=== PATIENT | male | born 1990 | race Caucasian/White ===

== ENCOUNTER 2019-09-08 04:03 | Inpatient (IN) ==
[2019-09-08] MEDS ORDERED: MORPHINE IV ONE ×2 (04:28→05:18)
[2019-09-08] MEDS ORDERED: ZOFRAN IV ONE (04:28)
[2019-09-08] MEDS ORDERED: NS 1,000 ML IV ONE (04:28)
[2019-09-08 04:57] LABS: AGAP 14; ALBUMIN 5.1 g/dL (3.5-5.0); ALKALINE PHOSPHATASE 64 U/L (32-122); BUN 12 mg/dL (8-22); CALCIUM 9.6 mg/dL (8.8-10.2); CHLORIDE 100 mmol/L (98-107); COSMO 275; CREATININE 0.6 mg/dL (0.7-1.2); ESTIMATED GFR > 60; GLUCOSE 149 mg/dL (70-104); GOT 39 U/L (10-34); GPT 25 U/L (10-44); LIPASE 17 U/L (13-60); POTASSIUM 5.1 mmol/L (3.5-5.1); SODIUM 136 mmol/L (136-145); TCO2 22 mmol/L (25-35); TOTAL PROTEIN 7.8 g/dL (6.3-8.3)
[2019-09-08 05:03] LABS: BASO# 0.03 X1000 (0.0-0.2); BASO% 0.1 % (0.0-0.8); EOS# 0.02 X1000 (0.0-0.7); EOS% 0.1 % (0.0-10.0); HEMATOCRIT 46.5 % (42.0-52.0); HEMOGLOBIN 15.7 g/dL (14.0-18.0); IMM GRAN# 0.05 X1000 (0.0-0.04); IMM GRAN% 0.2 % (0.0-0.5); LYMPH% 6.7 % (20.5-51.1); MCH 32.2 PG (27-31); MCHC 33.8 g/dL (33-37); MCV 95.5 FL (81-99); MONO# 0.45 X1000 (0.11-0.59); MONO% 2.2 % (1.7-9.3); MPV 10.7 FL (7.4-10.4); NEUT# 18.88 X1000 (1.4-6.5); NEUT% 90.7 % (42.2-75.2); PLT 304 X1000 (130-400); RBC 4.87 XMIL (4.7-6.1); RDW 12.8 % (11.5-14.5); WBC 20.83 X1000 (4.8-10.8)
[2019-09-08 05:04] LABS: BANDS 3 % (0-1); LYMPHS 4 % (21-51); MONO 4 % (1-9); SEGS 89 % (42-75); STOMATOCYTES 1+
[2019-09-08 05:37] LABS: URINE SOURCE CLEAN CATCH
[2019-09-08 05:39] LABS: BILIRUBIN URINE NEGATIVE (NEGATIVE); BLOOD URINE NEGATIVE (NEGATIVE); COLOR YELLOW; GLUCOSE URINE TRACE mg/dL (NEGATIVE); KETONE URINE NEGATIVE (NEGATIVE); LEUKOCYTES URINE NEGATIVE (NEGATIVE); NITRITE URINE NEGATIVE (NEGATIVE); PH URINE 8.5; PROTEIN URINE TRACE mg/dL (NEGATIVE); SP GRAVITY URINE 1.019; TURBIDITY URINE TURBID (CLEAR); UROBILINOGEN URINE NORMAL (NORMAL)
[2019-09-08 05:40] LABS: UR EPITHELIAL CELLS <10 /HPF (<10); URINE BACTERIA NEGATIVE /HPF; URINE RBC <10 /HPF (<10); URINE WBC <10 /HPF (<10)
[2019-09-08] MEDS ORDERED: ZOSYN 3.375 GM in NS 50 ML IV ONE (06:19)
--- NOTE | 2019-09-08 06:32 | PROVIDER DOCUMENTATION ---
HPI-General Adult - General Chief Complaint: Abdominal Pain Stated Complaint: ABD PAIN/V/D Time Seen by Provider: 09/08/19 04:13 Source: patient Allergies/Adverse Reactions: Patient Allergies Allergy/AdvReac Type Severity Reaction Status Date / Time No Known Allergies Allergy Verified 09/08/19 04:11 Home Medications: Home Medication List Medication Instructions Recorded Confirmed Last Taken Type NK [No Home Medications] 09/08/19 09/08/19 Unknown History - History of Present Illness -Gen Adult Nature of Presenting Problems: Sudden onset severe RUQ pain last night with vomting. No previous such episodes. No fever, no diarrhea. Review of Systems - Adult - REVIEW OF SYSTEMS - ADULT Constitutional: reports: chills, fatique Eyes: reports: no symptoms reported Ears, Nose, Mouth & Throat: reports: no symptoms reported Cardiovascular: reports: no symptoms reported Respiratory: reports: no symptoms reported Gastrointestinal: reports: see HPI Genitourinary: reports: no symptoms reported Musculoskeletal: reports: no symptoms reported Integumentary: reports: no symptoms reported Neurological: reports: no symptoms reported Psychiatric: reports: no symptoms reported Endocrine: reports: no symptoms reported Hematologic/Lymphatic: reports: no symptoms reported Allergic/Immunologic: reports: no symptoms reported Past History - Adult - PAST MEDICAL HISTORY-ADULT Review of Records: reports: Nursing Assessment Review, Medications Reviewed, Social history reviewed & non-contributory. Physical Exam-General - CONSTITUTIONAL General Appearance: moderate distress (due to pain) - EYES Eyes: PERRL/EOMI. negative: scleral icterus - HEAD, EARS, NOSE, MOUTH & THROAT HENMT: normocephalic/atraumatic, moist mucous membranes, normal ENT inspection - NECK Neck: non-tender, full range of motion, supple - RESPIRATORY Respiratory: chest non-tender, lungs clear, normal breath sounds - CARDIOVASCULAR Cardiovascular: normal peripheral pulses, regular rate, rhythm, no edema - GASTROINTESTINAL (ABDOMEN) Abdominal Exam: guarding (ruq), rebound, tenderness. negative: distended - LYMPHATIC Lymphatic: no adenopathy - MUSCULOSKELETAL Back Exam: normal inspection, no CVA tenderness Extremity: normal range of motion - SKIN Integumentary: normal color, normal turgor, warm/dry - NEUROLOGIC Neurologic: grossly normal Progress - PLAN OF CARE/RESULTS Progress/Plan/Lab Results: Vital Signs - 8 hr 09/08/19 04:07 Temperature 97.6 F Pulse Rate 65 Respiratory Rate 16 Blood Pressure 169/109 O2 Sat by Pulse Oximetry 100 Laboratory Results - last 24 hr 09/08/19 09/08/19 09/08/19 04:30 04:30 05:14 WBC 20.83 H RBC 4.87 Hgb 15.7 Hct 46.5 MCV 95.5 MCH 32.2 H MCHC 33.8 RDW Std Deviation 12.8 Plt Count 304 MPV 10.7 H Immature Gran % (Auto) 0.2 Neut % (Auto) 90.7 H Lymph % (Auto) 6.7 L [place] % (Auto) 2.2 Eos % (Auto) 0.1 Baso % (Auto) 0.1 Immature Gran # (Auto) 0.05 H Neut # (Auto) 18.88 H Lymph # (Auto) 1.40 [place] # (Auto) 0.45 Eos # (Auto) 0.02 Baso # (Auto) 0.03 Segmented Neutrophils 89 H Band Neutrophils 3 H Lymphocytes 4 L Monocytes 4 Stomatocytes 1+ Sodium 136 Potassium 5.1 Chloride 100 Carbon Dioxide 22 L Anion Gap 14 BUN 12 Creatinine 0.6 L Estimated GFR/1.73 m2 > 60 BUN/Creatinine Ratio 20 Glucose 149 H Calculated Osmolality 275 Calcium 9.6 Total Bilirubin 0.60 AST 39 H ALT 25 Alkaline Phosphatase 64 Total Protein 7.8 Albumin 5.1 H Globulin 3.0 Albumin/Globulin Ratio 2.0 Lipase 17 Urine Source CLEAN CATCH Urine Color YELLOW Urine Turbidity TURBID Urine pH 8.5 Ur Specific [place] 1.019 Urine Protein TRACE A Ur Glucose (Stick) TRACE Ur Ketones (Stick) NEGATIVE Urine Blood NEGATIVE Urine Nitrite NEGATIVE Urine Bilirubin NEGATIVE Urobilinogen Dipstick NORMAL Urine Leukocytes NEGATIVE Urine WBC (Auto) <10 Urine RBC (Auto) <10 U Epithel Cells (Auto) <10 Urine Bacteria (Auto) NEGATIVE Orders Category Date Time Status NPO Diet 09/08/19 04:[address] ABD/PELVIS W/IV CONT ONLY [CT] Stat Exams 09/08/19 05:15 Taken BLOOD CULTURE [BLDCUL] Stat Lab 09/08/19 06:19 Uncollected CBC WITH DIFF [HEME] Stat Lab 09/08/19 04:30 Completed COMPREHENSIVE METABOLIC PANEL [CHEM] Stat Lab 09/08/19 04:30 Completed LACTATE, PLASMA [CHEM] Stat Lab 09/08/19 06:19 Uncollected LIPASE [CHEM] Stat Lab 09/08/19 04:30 Completed URINALYSIS [URINALYSIS] Stat Lab 09/08/19 05:14 Completed 0.9% Sodium Chloride Inj [Ns] 1,000 ml Med 09/08/19 04:28 Discontinued IV 999 mls/hr Morphine Med 09/08/19 04:28 Discontinued 4 mg IV NOW ONE Morphine Med 09/08/19 05:18 Discontinued 4 mg IV NOW ONE Ondansetron [Zofran] Med 09/08/19 04:28 Discontinued 4 mg IV NOW ONE Piperacillin/Tazobactam [Zosyn] 3.375 gm Med 09/08/19 06:19 Active 0.9% Sodium Chloride Inj [Ns] 50 ml IV NOW Abd Pain/OB <20 weeks Stat Oth 09/08/19 04:15 Ordered Clinically stable while here. He has leucocytosis of 20k and CT shows acute cholecytitis. DW Dr Hernandez who accepted him at . Good pain relief with morphine. Zosyn given. Result Diagrams: 09/08/19 04:30 09/08/19 04:30 Departure - Departure Date of Disposition Decision: 09/08/19 Time of Disposition Decision: 06:39 DIAGNOSIS: Acute cholecystitis Disposition: ADMITTED INPATIENT 09 Certified Medical Emergency: Emergent Condition: Fair Referrals and Follow-Ups: None,PCP [Primary Care Provider] - - Critical Care Note This patient required my direct & personal management of CC.: No Attestation - Physician/ NETO Attestation The physician spent face to face time with patient:: Yes Advanced Practice Provider documentation review:: Supervising physician onsite and consulted in the evaluation and care of this patient. The physician did have a face to face encounter with the patient.
[2019-09-08] MEDS: NS 1,000 ML IV SCH ×2 (07:09→16:19)
--- NOTE | 2019-09-08 08:18 | Diag Imaging Result Doc PS360 ---
EXAM: CT ABD/PELVIS W/IV CONT ONLY HISTORY: epigastric and RUQ pain c vomiting TECHNIQUE: CT abdomen and pelvis with intravenous contrast COMPARISON: None. FINDINGS: There is gallbladder wall thickening. There appears to be a stone near the neck of the gallbladder measuring 18 mm. No focal hepatic abnormality. There may be mild fatty infiltration. The spleen measures 14.2 cm. No inflammation about the pancreas. Normal adrenal glands and kidneys. No hydronephrosis. Normal aorta. Normal appendix. No abscess. No bowel obstruction. No ascites. The urinary bladder is only mildly distended. Normal prostate. IMPRESSION: 1.Acute cholecystitis 2.Mild splenomegaly 3.A preliminary report was given at 6:28 AM This exam was performed using automated exposure control, adjustment of mA or kV according to patient size, and/or use of iterative reconstruction technique. Electronically signed by Riccardo Mata 09/08/2019 8:16 AM
[2019-09-08] MEDS ORDERED: ZOSYN 3.375 GM in NS 50 ML IV SCH (08:45)
[2019-09-08] MEDS: MORPHINE IV PRN (11:47)
--- NOTE | 2019-09-08 12:17 | HISTORY AND PHYSICAL ---
DATE: 09/08/2019 CHIEF COMPLAINT: Abdominal pain with nausea, vomiting. REASON FOR CONSULTATION: Cholecystitis. HISTORY OF PRESENT ILLNESS: This is a 29-year-old gentleman who has had epigastric abdominal pain for some time. He has attributed this to gas. Starting yesterday evening, he developed more acute onset persistent abdominal pain in the right upper quadrant. Denies any jaundice. No GI bleeding. He has had some associated nausea, vomiting. Bowel function has otherwise been normal. His diet was otherwise nothing out of the ordinary. MEDICAL HISTORY: Negative. SURGICAL HISTORY: None. SOCIAL HISTORY: He does smoke about a pack a day. 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 FAMILY HISTORY: Significant for gallbladder disease but no colorectal cancer. REVIEW OF SYSTEMS: Ten point review of systems was performed and negative otherwise mentioned HPI. LABORATORY DATA: White count 20, hematocrit 46, platelets 304,000. Creatinine 0.6. His bilirubin is normal. AST mildly elevated, ALT, and alkaline phosphatase are normal. Lactate is normal. Lipase is normal. I reviewed his CT scan shows a dilated thickened wall gallbladder with gallstones consistent with acute cholecystitis. ASSESSMENT AND PLAN: This is a 29-year-old gentleman who presents with cholecystitis. His LFTs are normal and his symptoms are somewhat improved with medical management thus far. We discussed risk of bleeding, infection, damage to surrounding structures, bile leak conversion to open and possible need for further surgery. He understands all this and consents to laparoscopic cholecystectomy with cholangiogram. We will go to the operating room this afternoon. cc: Andrzej Hernandez MD
[2019-09-08] MEDS: ZOSYN 3.375 GM in NS 50 ML IV SCH ×2 (13:22→18:33)
[2019-09-08] MEDS ORDERED: VERSED ONE (15:07)
[2019-09-08] MEDS ORDERED: DIPRIVAN 1% ONE (15:08)
[2019-09-08] MEDS ORDERED: FENTANYL ONE (15:08)
[2019-09-08] MEDS ORDERED: SODIUM CHLORIDE 0.9% ONE (15:15)
[2019-09-08] MEDS ORDERED: XYLOCAINE 1%/EPI 1:100,000 ONE (15:15)
[2019-09-08] MEDS ORDERED: LR 1,000 ML ONE (15:16)
[2019-09-08] MEDS ORDERED: QUELICIN (DOSE) ONE (15:30)
[2019-09-08] MEDS ORDERED: DECADRON ONE (15:30)
[2019-09-08] MEDS ORDERED: XYLOCAINE-MPF 2% ONE (15:30)
[2019-09-08] MEDS ORDERED: ZEMURON ONE (15:30)
[2019-09-08] MEDS ORDERED: ZOFRAN ONE (15:30)
--- NOTE | 2019-09-08 16:09 | Diag Imaging Result Doc PS360 ---
EXAM: OPERATIVE CHOLANGIOGRAM HISTORY: ACUTE CHOLECYSTITIS TECHNIQUE: Intraoperative cholangiogram COMPARISON: None. FINDINGS: Contrast fills the common bile duct and has emptied into the duodenum. No stone or stricture. IMPRESSION: Normal intraoperative cholangiogram Electronically signed by Riccardo Mata 09/08/2019 4:07 PM
[2019-09-08] MEDS: MORPHINE ONE ×3 (17:02→17:15)
[2019-09-08] MEDS ORDERED: NORCO-10 ONE (17:23)
[2019-09-08] MEDS: PHENERGAN ONE (17:27)
--- NOTE | 2019-09-08 17:56 | OPERATIVE NOTE ---
PROCEDURE DATE: 09/08/2019 PREOPERATIVE DIAGNOSIS: Cholecystitis. POSTOPERATIVE DIAGNOSIS: Cholelithiasis with acute cholecystitis. PROCEDURE PERFORMED: Laparoscopic cholecystectomy with cholangiogram. ESTIMATED BLOOD LOSS: 15 mL. SPECIMENS: Gallbladder. ANESTHESIA: General. INDICATIONS: A gentleman who has had episodic right upper quadrant abdominal pain presented with acute onset of persistent pain and imaging consistent with acute cholecystitis. OPERATIVE FINDINGS: 1. There was an edematous tensely distended gallbladder with an impacted stone within the gallbladder neck. 2. Interpretation of intraoperative cholangiogram showed rapid flow of contrast through a moderate length cystic duct into a nondilated common bile duct and into the duodenum with no filling defect. Intrahepatic radicles appeared normal. OPERATIVE NOTE: Risks, benefits and alternatives were discussed with patient who consented to the procedure. He was seen preoperatively, and surgery site was confirmed. He was taken to the operating room and placed in supine position. General anesthesia induced. Hair was removed with clippers, and his abdomen was prepped with chlorhexidine solution and draped in the usual fashion. After time-out, a supraumbilical incision was made and carried down to the fascia. The fascia was incised along the midline. The abdomen was entered in open controlled fashion. A 12 mm Meche trocar was placed under direct visualization. The abdomen was insufflated to 15 mmHg, and he tolerated this well. He was then placed in reverse Trendelenburg left side down. Three additional trocars were placed, 5 mm under direct visualization. The gallbladder was tensely distended. We decompressed it with a suction decompression catheter and dark black bile was expressed. We then retracted the gallbladder cephalad. Starting laterally and progressing medially, we stripped down the peritoneum overlying the infundibulum cystic junction. There was a very large inflamed Calot node here as well. We encircled the cystic artery as it coursed behind the node and doubly clipped it at the level of the gallbladder and divided it. This facilitated our exposure. We established our critical view, dissecting the lower third of the gallbladder down. At the infundibulum-cystic junction, the liver was visualized through this. Fibroconnective tissue was divided using a combination of blunt and electrocautery dissection. After confirming our anatomy, we placed a clip on the gallbladder side and made a ductotomy and performed cholangiogram. After satisfactory cholangiogram, we triply clipped the duct after re- establishing exposure and removed the gallbladder from the gallbladder fossa with care not to spill any bile or rupture it. It was placed in the EndoCatch bag. We copiously irrigated the abdomen until clear. There was a very small venous branch that entered posteriorly that was clipped as well. After irrigating and noting no bile leakage, no bleeding, we desufflated the abdomen and brought the gallbladder out through the incision made larger at the umbilicus, and then closed this fascia with interrupted 0 Vicryl sutures. Skin was closed surgical clips. A gauze Medipore dressing was applied and tolerated well. No complications. cc: Andrzej Hernandez MD
[2019-09-09] MEDS: NS 1,000 ML IV SCH ×2 (00:47→09:10)
[2019-09-09] MEDS: ZOSYN 3.375 GM in NS 50 ML IV SCH ×2 (00:47→06:32)
[2019-09-09] MEDS: MORPHINE IV PRN ×2 (00:49→06:30)
[2019-09-09 07:42] VITALS: BP 111/63
--- NOTE | 2019-09-09 13:05 | DISCHARGE SUMMARY ---
DATE OF ADMISSION: 09/08/2019 DATE OF DISCHARGE: 09/09/2019 ADMITTING DIAGNOSIS: Acute cholecystitis. POSTOPERATIVE DIAGNOSIS: Acute cholecystitis. PROCEDURE PERFORMED: Laparoscopic cholecystectomy with cholangiogram. HISTORY OF PRESENT ILLNESS: This 29-year-old gentleman developed abdominal pain and came the ER with imaging suggesting cholecystitis. He was taken to the operating room on 09/08/2019 for above procedure. HOSPITAL COURSE: He was seen in the ER. He was started on Zosyn and made NPO. He was taken to the operating room on the day of admission. Postoperatively, his diet was advanced. Pain control, he was able to void and tolerated his diet. He is felt safe to discharge home. DISPOSITION: Home to self-care. DISCHARGE CONDITION: Good. DISCHARGE INSTRUCTIONS: Given written and verbal format. DISCHARGE DIET: Will continue low-fat GI soft diet. DISCHARGE MEDICATIONS: Isabela, Colace and Zofran. Wound care, he will remove his dressings in 24 hours. cc: Andrzej Hernandez MD
== END 2019-09-09 10:34 | disposition home or self-care (01) | DRG 419 ==
LOC: P.ED 04:03 → 4N 07:33
PROVIDERS: ADMIT Surgery; ATTEND Surgery